=== PATIENT | female | born 1985 | race Caucasian/White ===

== ENCOUNTER 2016-09-10 13:24 | Emergency (ER) | payer OTHER ==
[~2016-09-10] VITALS: Ht 167.6 cm; Wt 73.9 kg
[~2016-09-10 13:24] MED LIST: DOXYCYCLINE HY100 MG PO; ZOFRAN ODT4 MG PO
[2016-09-10 14:54] LABS: EOSINOPHIL (%) 1.9 % (0-5); EOSINOPHIL COUNT 0.1 K/uL (0-0.3); HEMATOCRIT 40.4 % (36.0-46.0); IMMATURE GRANULOCYTE (%) 0.2 % (0.0-0.7); LYMPHOCYTE COUNT 2.7 K/uL (1.0-2.8); MCH 31.9 PG (29.0-34.0); MCHC 33.9 G/DL (30.0-36.0); MCV 94.2 FL (83-99); MEAN PLAT.VOLUME 8.9 uM^3 (9.5-12.4); MONOCYTE COUNT 0.4 K/uL (0-0.8); NEUTROPHIL (%) 46.9 % (45-76); PLATELET COUNT 292 K/uL (156-360); RBC DIS.WIDTH-SD 44.8 % (39-53); RED BLOOD COUNT 4.29 M/uL (3.80-5.20); WHITE BLOOD COUNT 6.3 K/uL (4.1-10.2)
[2016-09-10 15:03] LABS: CHLORIDE 105 mEq/L (99-109); POTASSIUM 4.4 mEq/L (3.7-5.4)
[2016-09-10 15:04] LABS: SODIUM 139 mEq/L (136-147)
[2016-09-10 15:05] LABS: GLUCOSE 82 mg/dL (70-99)
[2016-09-10 15:07] LABS: ANION GAP 6 MEQ/L (2-14)
[2016-09-10 15:08] LABS: SERUM ETHYL ALCOHOL < 10 mg/dL
[2016-09-10 15:09] LABS: GFR ESTIMATE (CALCULATED) > 59 mL/min/
[2016-09-10 15:10] LABS: UREA NITROGEN (BUN) 13 mg/dL (9-23)
[2016-09-10 16:00] LABS: ADD MIUA? YES; BILIRUBIN MODERATE; BLOOD NEGATIVE; COLOR YELLOW ((YELLOW)); GLUCOSE (STRIP) NEGATIVE; KETONES NEGATIVE; LEUKOCYTES SMALL; NITRITE NEGATIVE; PROTEIN (STRIP) NEGATIVE; SPECIFIC GRAVITY 1.024 (1.000-1.030); UROBILINOGEN 0.2 MG/DL (0.2-1.0)
[2016-09-10 16:06] LABS: BACTERIA RARE /HPF; EPITHELIAL CELLS 2+ /HPF; MUCUS 1+ /LPF; RED BLOOD CELLS 0-5 /HPF (0-5); UNCLASSIFIED CRYSTALS 1+ /HPF
[2016-09-10 16:20] LABS: ADD MEDTOX COMMENT Y; AMPHETAMINE NEGATIVE (500 ng/mL); BARBITURATES NEGATIVE (200 ng/mL); BENZODIAZEPINES PRESUMPTIVE POSITIVE (150 ng/mL); COCAINE NEGATIVE (150 ng/mL); INTERNAL CONTROLS VALID? YES; METHADONE NEGATIVE (200 ng/mL); METHAMPHETAMINE NEGATIVE (500 ng/mL); OPIATES (MORPHINE) NEGATIVE (100 ng/mL); OXYCODONE NEGATIVE (100 ng/mL); PHENCYCLIDINE NEGATIVE (25 ng/mL); PROPOXYPHENE NEGATIVE (300 ng/mL); THC CANNABINOIDS PRESUMPTIVE POSITIVE (50 ng/mL); TRICYCLIC ANTIDEPRESSANTS NEGATIVE (300 ng/mL)
[2016-09-10 16:24] LABS: ICTOTEST POSITIVE
[2016-09-10 16:43] VITALS: BP 150/77
[2016-09-10 17:46] LABS: BENZODIAZEPINES, URINE SCREEN POSITIVE (200 ng/mL)
== END 2016-09-10 16:44 | disposition home or self-care (01) ==
LOC: EME 13:24
PROVIDERS: Emergency Medicine
DX: F31.9 Bipolar disorder, unspecified (principal); F12.20 Cannabis dependence, uncomplicated; Z88.6 Allergy status to analgesic agent; Z88.8 Allergy status to other drugs, medicaments and biological substances
CPT/HCPCS: 80048; 81003; 84999; 85025; 90839; 99281; 99284; G0480

== ENCOUNTER 2016-10-03 07:46 | Emergency (ER) | payer OTHER ==
[~2016-10-03] VITALS: Ht 167.6 cm; Wt 47.5 kg
[2016-10-03] MEDS ORDERED: LAMICTAL100 MG PO (10:04)
[2016-10-03] MEDS ORDERED: LEXAPRO20 MG PO (10:04)
[2016-10-03 10:13] VITALS: BP 122/74
== END 2016-10-03 10:37 | disposition home or self-care (01) ==
LOC: EME 07:46
DX: F41.9 Anxiety disorder, unspecified (principal); F31.9 Bipolar disorder, unspecified; F12.90 Cannabis use, unspecified, uncomplicated; Z76.0 Encounter for issue of repeat prescription; Z88.6 Allergy status to analgesic agent; F17.200 Nicotine dependence, unspecified, uncomplicated
CPT/HCPCS: 90839; 99281; 99284

== ENCOUNTER 2017-01-08 13:00 | Emergency (ER) | payer OTHER ==
[~2017-01-08] VITALS: Ht 167.6 cm; Wt 71.4 kg
[~2017-01-08 13:00] MED LIST changes: +LAMICTAL100 MG PO; +LEXAPRO20 MG PO
[2017-01-08 13:07] VITALS: BP 135/77
[2017-01-08] MEDS ORDERED: TEGRETOL-XR,CA100 MG PO (15:34)
[2017-01-08] MEDS ORDERED: PROZAC10 MG PO (15:34)
[2017-01-08] MEDS ORDERED: NAPROXEN500 MG PO (16:01)
== END 2017-01-08 16:40 | disposition home or self-care (01) ==
LOC: EME 13:00
DX: S40.012A Contusion of left shoulder, initial encounter (principal); W50.0XXA Accidental hit or strike by another person, initial encounter; F31.9 Bipolar disorder, unspecified; Z88.8 Allergy status to other drugs, medicaments and biological substances
CPT/HCPCS: 73060; 99281; 99283

== ENCOUNTER 2017-03-25 10:59 | Emergency (ER) | payer OTHER ==
[~2017-03-25] VITALS: Ht 167.6 cm; Wt 72.5 kg
[~2017-03-25 10:59] MED LIST changes: +NAPROXEN500 MG PO; +PROZAC10 MG PO; +TEGRETOL-XR,CA100 MG PO
[2017-03-25 11:20] VITALS: BP 147/106
== END 2017-03-25 14:21 | disposition left against medical advice (07) ==
LOC: EME 10:59
DX: F41.9 Anxiety disorder, unspecified (principal); Z53.21 Procedure and treatment not carried out due to patient leaving prior to being seen by health care provider